=== PATIENT | female | born 1980 | race Caucasian/White ===

== ENCOUNTER → 2023-08-19 | Outpatient (REF) | LOC: M EMP 12:39 | PROVIDERS: ATTEND Family Medicine | DX: Z53.9 Procedure and treatment not carried out, unspecified reason (principal) ==

== ENCOUNTER → 2023-12-12 | Outpatient (CLI) | payer OTHER ==
[2023-12-12 14:23] LABS: BASO % 0.1 % (0.0-1.0); EOS # 0.2 10^3/uL (0.0-0.5); EOS % 2.5 % (0.0-3.0); HEMOGLOBIN 11.7 g/dl (12.0-15.5); LYMPH # 2.2 10^3/uL (1.5-5.0); MEAN CORPUSCULAR HEMOGLOBIN 28.1 pg (27.0-33.0); MEAN CORPUSCULAR HGB CONC 31.6 g/dl (32.0-36.5); MEAN CORPUSCULAR VOLUME 88.7 fl (80.0-96.0); MONO # 0.5 10^3/uL (0.0-0.8); MONO % 6.8 % (2.0-8.0); NEUTROPHILS # 4.6 10^3/uL (1.5-8.5); NEUTROPHILS % 61.1 % (36.0-66.0); PLATELET COUNT, AUTOMATED 454 10^3/uL (150-450); RED BLOOD COUNT 4.17 10^6/uL (4.00-5.40); WHITE BLOOD COUNT 7.5 10^3/uL (4.0-10.0)
[2023-12-12 14:49] LABS: PERCENT SATURATION 6.5 % (13.2-45.0)
[2023-12-12 14:50] LABS: FOLATE 11.3 NG/ML (>5.4)
[2023-12-12 14:51] LABS: FERRITIN 27.3 NG/ML (7.3-270.7)
== END ==
LOC: M LAB 13:31
PROVIDERS: ATTEND Nurse Practitioner Family
DX: D64.9 Anemia, unspecified (principal)

== ENCOUNTER → 2023-12-13 | Outpatient (REF) | payer OTHER | LOC: M LAB REF 15:29 | PROVIDERS: ATTEND Nurse Practitioner Family | DX: D64.9 Anemia, unspecified (principal) ==

== ENCOUNTER → 2024-01-02 | Outpatient (CLI) | payer OTHER | LOC: M RAD 14:06 | PROVIDERS: ATTEND Physician Assistant | DX: S60.551A Superficial foreign body of right hand, initial encounter (principal); W45.8XXA Other foreign body or object entering through skin, initial encounter; Y93.9 Activity, unspecified; Y92.9 Unspecified place or not applicable ==

== ENCOUNTER → 2024-01-21 | Outpatient (CLI) | payer OTHER ==
[2024-01-21 14:25] LABS: BASO % 0.3 % (0.0-1.0); EOS # 0.2 10^3/uL (0.0-0.5); HEMATOCRIT 34.2 % (36.0-47.0); HEMOGLOBIN 10.9 g/dl (12.0-15.5); MEAN CORPUSCULAR HEMOGLOBIN 28.1 pg (27.0-33.0); MEAN CORPUSCULAR HGB CONC 31.9 g/dl (32.0-36.5); MEAN CORPUSCULAR VOLUME 88.1 fl (80.0-96.0); MONO # 0.5 10^3/uL (0.0-0.8); MONO % 7.3 % (2.0-8.0); NEUTROPHILS # 3.7 10^3/uL (1.5-8.5); NEUTROPHILS % 58.2 % (36.0-66.0); PLATELET COUNT, AUTOMATED 391 10^3/uL (150-450); RED BLOOD COUNT 3.88 10^6/uL (4.00-5.40); WHITE BLOOD COUNT 6.3 10^3/uL (4.0-10.0)
[2024-01-21 14:44] LABS: PERCENT SATURATION 7.4 % (13.2-45.0)
[2024-01-21 14:47] LABS: FERRITIN 17.9 NG/ML (7.3-270.7)
== END ==
LOC: M LAB 14:02
PROVIDERS: ATTEND Nurse Practitioner Family
DX: D64.9 Anemia, unspecified (principal)

== ENCOUNTER → 2024-04-08 | Outpatient (CLI) | payer OTHER ==
[2024-04-08 14:33] LABS: BASO % 0.2 % (0.0-1.0); EOS # 0.2 10^3/uL (0.0-0.5); EOS % 2.7 % (0.0-3.0); HEMATOCRIT 36.8 % (36.0-47.0); HEMOGLOBIN 11.4 g/dl (12.0-15.5); LYMPH % 30.7 % (24.0-44.0); MEAN CORPUSCULAR VOLUME 90.4 fl (80.0-96.0); MONO # 0.4 10^3/uL (0.0-0.8); MONO % 6.7 % (2.0-8.0); NEUTROPHILS # 3.9 10^3/uL (1.5-8.5); NEUTROPHILS % 59.5 % (36.0-66.0); PLATELET COUNT, AUTOMATED 376 10^3/uL (150-450); RED BLOOD COUNT 4.07 10^6/uL (4.00-5.40); WHITE BLOOD COUNT 6.6 10^3/uL (4.0-10.0)
[2024-04-08 14:54] LABS: PERCENT SATURATION 7.1 % (13.2-45.0)
[2024-04-08 14:56] LABS: FERRITIN 21.7 NG/ML (7.3-270.7)
== END ==
LOC: M LAB 13:47
PROVIDERS: ATTEND Nurse Practitioner Family
DX: D64.9 Anemia, unspecified (principal)

== ENCOUNTER → 2024-12-15 | Outpatient (REF) | payer OTHER ==
[2024-12-17 15:04] LABS: HPV APTIMA Not Detected (Not Detected)
== END ==
LOC: M LAB REF 17:01
PROVIDERS: ATTEND Nurse Practitioner Family
DX: Z01.419 Encounter for gynecological examination (general) (routine) without abnormal findings (principal)